=== PATIENT | female | born 1945 | race Caucasian/White ===

== ENCOUNTER 2016-11-14 13:02 | Emergency (ER) | payer MEDICARE, MEDICAID ==
[2014-06-09 06:54] VITALS: BMI 26.6
[~2016-11-14 13:02] MED LIST: MULTIPLE VITAMI1 TA1 PO
== END 2016-11-14 13:50 | disposition home or self-care (01) ==
LOC: D.ER 13:02
DX: B02.9 Zoster without complications (principal)

== ENCOUNTER → 2017-06-12 19:02 | Outpatient (CLI) | payer MEDICARE, MEDICAID ==
[2014-06-09 06:54] VITALS: BMI 26.6
== END | disposition home or self-care (01) ==
LOC: D.LABREF 19:02
DX: N39.0 Urinary tract infection, site not specified (principal)

== ENCOUNTER → 2017-06-26 17:46 | Outpatient (CLI) | payer MEDICARE, MEDICAID ==
[2014-06-09 06:54] VITALS: BMI 26.6
== END | disposition home or self-care (01) ==
LOC: D.LABREF 17:46
DX: N39.0 Urinary tract infection, site not specified (principal)

== ENCOUNTER → 2017-08-07 19:07 | Outpatient (CLI) | payer MEDICARE, MEDICAID ==
[2014-06-09 06:54] VITALS: BMI 26.6
== END | disposition home or self-care (01) ==
LOC: D.LABREF 19:07
DX: N39.0 Urinary tract infection, site not specified (principal)

== ENCOUNTER → 2017-08-21 16:33 | Outpatient (CLI) | payer MEDICARE, MEDICAID ==
[2014-06-09 06:54] VITALS: BMI 26.6
== END ==
LOC: D.LABREF 16:33
DX: N39.0 Urinary tract infection, site not specified (principal)

== ENCOUNTER 2018-08-06 08:47 | Emergency (ER) | payer OTHER, MEDICAID ==
[~2018-08-06] VITALS: Ht 152.4 cm; Wt 63.6 kg
[2018-08-06 08:49] VITALS: Ht 152.4 cm; Wt 63.6 kg
[2018-08-06 10:13] VITALS: BP 124/69
== END 2018-08-06 10:14 | disposition home or self-care (01) ==
LOC: D.ER 08:47
DX: S20.211A Contusion of right front wall of thorax, initial encounter (principal); W18.30XA Fall on same level, unspecified, initial encounter; Y93.89 Activity, other specified; Y92.89 Other specified places as the place of occurrence of the external cause

== ENCOUNTER 2018-08-20 09:17 | Emergency (ER) | payer OTHER, MEDICAID ==
[~2018-08-20] VITALS: Ht 152.4 cm; Wt 62.7 kg
[2018-08-20 09:30] VITALS: Ht 152.4 cm; Wt 62.7 kg
[2018-08-20 11:30] VITALS: BP 123/80
== END 2018-08-20 11:30 | disposition home or self-care (01) ==
LOC: D.ER 09:17
DX: L25.5 Unspecified contact dermatitis due to plants, except food (principal)

== ENCOUNTER 2018-09-14 19:14 | Emergency (ER) | payer OTHER, MEDICAID ==
[~2018-09-14] VITALS: Ht 152.4 cm; Wt 59.1 kg
[2018-09-14 19:27] VITALS: BP 132/75; Ht 152.4 cm; Wt 59.1 kg
[2018-09-14 19:57] LABS: BASOPHILS 0.5 % (0-2); EOSINOPHILS 4.2 % (0-7); HEMATOCRIT 39.9 % (36.0-48.0); HEMOGLOBIN 13.7 g/dL (12-16); IMMATURE GRANULOCYTES 0.2 % (0-5); MCH 34.3 pg (26.0-34.0); MCHC 34.3 g/dL (31.0-37.0); MCV 99.8 fL (80.0-100.0); MEAN PLATELET VOLUME 9.5 fL (7.4-10.4); MONOCYTES 8.4 % (2-11); NEUTROPHILS 50.7 % (40-80); PLATELET COUNT 180 10x3/uL (130-400); RDW 12.6 % (11.5-14.5); WBC 4.3 10x3/uL (4.8-10.8)
[2018-09-14 20:09] LABS: ANION GAP 11.5 mmol/L (8-16); BILIRUBIN - TOTAL 0.47 mg/dL (0.2-1.3); CALCIUM 9.6 mg/dL (8.5-10.1); CARBON DIOXIDE 31.4 mmol/L (21.0-32.0); CREATININE - SERUM 1.5 mg/dL (0.6-1.3); POTASSIUM - SERUM 3.9 mmol/L (3.5-5.1); PROTEIN - SERUM 8.6 g/dL (6.4-8.2)
[2018-09-14 21:16] LABS: APPEARANCE CLEAR (CLEAR); BILIRUBIN NEGATIVE (NEGATIVE); COLOR YELLOW (YELLOW); GLUCOSE NEGATIVE (NEGATIVE); KETONE NEGATIVE (NEGATIVE); NITRITE NEGATIVE (NEGATIVE); PROTEIN NEGATIVE (NEGATIVE); UROBILINOGEN NORMAL (NORMAL)
[2018-09-14 21:18] LABS: BACTERIA MODERATE /hpf (NONE SEEN); EPITHELIAL CELLS 0-5 /hpf (0-5); RED CELLS - URINE 0-5 /hpf (0-5)
[2018-09-14] MEDS ORDERED: NAPROXEN250 MG PO (22:37)
== END 2018-09-14 23:20 | disposition home or self-care (01) ==
LOC: D.ER 19:14
PROVIDERS: Family Medicine
DX: S39.012A Strain of muscle, fascia and tendon of lower back, initial encounter (principal); X58.XXXA Exposure to other specified factors, initial encounter; Y93.89 Activity, other specified; Y92.89 Other specified places as the place of occurrence of the external cause

== ENCOUNTER 2019-01-29 11:59 | Outpatient (CLI) | payer OTHER, MEDICAID ==
[2018-09-14 19:27] VITALS: BMI 25.4
[~2019-01-29 11:59] MED LIST changes: +NAPROXEN250 MG PO
== END 2019-01-29 23:59 | disposition home or self-care (01) ==
LOC: D.MAMMO 11:59
PROVIDERS: ATTEND Emergency Medicine
DX: Z12.31 Encounter for screening mammogram for malignant neoplasm of breast (principal)

== ENCOUNTER 2019-07-07 21:31 | Inpatient (IN) | payer OTHER, MEDICAID ==
[~2019-07-07] VITALS: Ht 152.4 cm; Wt 59.0 kg
--- NOTE | 2019-07-07 22:20 | NUR ---
PT UPDATED ON PLAN OF CARE. PT RESTING ON BED. PT REFUSING PAIN MEDS OR FOOD/DRINK AT THIS TIME.
[2019-07-07 22:26] LABS: BASOPHILS 0.1 % (0-2); EOSINOPHILS 0.1 % (0-7); HEMATOCRIT 40.4 % (36.0-48.0); HEMOGLOBIN 13.5 g/dL (12-16); IMMATURE GRANULOCYTES 0.1 % (0-5); MCH 34.4 pg (26.0-34.0); MCHC 33.4 g/dL (31.0-37.0); MCV 102.8 fL (80.0-100.0); MEAN PLATELET VOLUME 9.3 fL (7.4-10.4); MONOCYTES 4.9 % (2-11); NEUTROPHILS 86.8 % (40-80); PLATELET COUNT 167 10x3/uL (130-400); RBC 3.93 10x6/uL (4.00-5.40); RDW 12.6 % (11.5-14.5)
[2019-07-07 22:34] LABS: CALC OSMOLALITY 292 mosm/kg (275-300); CALCIUM 9.3 mg/dL (8.5-10.1); CARBON DIOXIDE 28.9 mmol/L (21.0-32.0); CHLORIDE - SERUM 106 mmol/L (98-107); CREATININE - SERUM 1.3 mg/dL (0.6-1.3); GLUCOSE 134 mg/dL (74-106); POTASSIUM - SERUM 3.9 mmol/L (3.5-5.1); SODIUM 143 mmol/L (136-145); UREA NITROGEN 30 mg/dL (7-18); eGFR NON AFRICAN AMERICAN 43 mL/min (90-120)
[2019-07-07 22:38] LABS: INR 1.03 (0.85-1.17); PROTIME 13.5 SECONDS (11.6-15.0)
--- NOTE | 2019-07-07 23:05 | NUR ---
REC'D PATIENT FROM ER. PATIENT STATED SHE NEEDS TO HAVE A BM. ASSISTED PATIENT ON AND OFF BEDPAN. PATIENT VOIDED, HOWEVER, DID NOT HAVE A BM. DID NOT USE URINE FOR SPECIMEN ORDERED BECAUSE IT WAS CONTAMINATED WITH BABY POWDER. PATIENT DENIES OTHER NEEDS AT THIS TIME. BED IN LOWEST POSITION AND CALL LIGHT WITHIN REACH. ENCOURAGED THE PATIENT TO CALL IF SHE HAS NEEDS. WILL CONTINUE TO MONITOR.
[2019-07-07 23:22] LABS: ALBUMIN 3.5 g/dL (3.4-5.0); ALKALINE PHOSPHATASE 88 U/L (30-120); ALT (SGPT) 37 U/L (10-68); BILIRUBIN - TOTAL 0.83 mg/dL (0.2-1.3); CKMB 53.1 U/L (0.0-3.6); PROTEIN - SERUM 8.1 g/dL (6.4-8.2)
[2019-07-07 23:24] VITALS: BP 155/88; BMI 25.4
[2019-07-07 23:24] LABS: CREATINE KINASE 3098 UL (21-215)
[2019-07-08] VITALS (10 sets, daily range): BP systolic 97–140; BP diastolic 58–79; Ht 152.4 cm; Wt 59.0 kg
--- NOTE | 2019-07-08 00:22 | NUR ---
PATIENT RESTING IN BED WITH EYES CLOSED AND NO S/S OF DISTRESS. WILL CONTINUE TO MONTIOR.
--- NOTE | 2019-07-08 03:53 | NUR ---
PATIENT RESTING IN BED WITH NO S/S OF DISTRESS AND EYES CLOSED. WILL CONTINUE TO MONITOR.
--- NOTE | 2019-07-08 04:22 | NUR ---
CHG BATH COMPLETED AND ALL LINENS CHANGED
[2019-07-08 06:34] LABS: BILIRUBIN NEGATIVE (NEGATIVE); GLUCOSE NEGATIVE (NEGATIVE); KETONE NEGATIVE (NEGATIVE); NITRITE POSITIVE (NEGATIVE); SPECIFIC GRAVITY 1.025 (1.005-1.020); UROBILINOGEN NORMAL (NORMAL)
[2019-07-08 06:35] LABS: BACTERIA MANY /hpf (NEGATIVE); EPITHELIAL CELLS 0-5 /hpf (0-5); RED CELLS - URINE 0-5 /hpf (0-5)
[2019-07-08 09:34] LABS: BASOPHILS 0.2 % (0-2); EOSINOPHILS 0 % (0-7); HEMATOCRIT 37.1 % (36.0-48.0); HEMOGLOBIN 12.4 g/dL (12-16); IMMATURE GRANULOCYTES 0.3 % (0-5); LYMPHOCYTES 11.5 % (15-50); MCH 34.1 pg (26.0-34.0); MCHC 33.4 g/dL (31.0-37.0); MCV 101.9 fL (80.0-100.0); MEAN PLATELET VOLUME 9.4 fL (7.4-10.4); MONOCYTES 7.6 % (2-11); NEUTROPHILS 80.4 % (40-80); PLATELET COUNT 155 10x3/uL (130-400); RBC 3.64 10x6/uL (4.00-5.40); RDW 12.7 % (11.5-14.5); WBC 6.3 10x3/uL (4.8-10.8)
[2019-07-08 09:52] LABS: ANION GAP 9.9 mmol/L (8-16); CALCIUM 8.9 mg/dL (8.5-10.1); CARBON DIOXIDE 28.9 mmol/L (21.0-32.0); CREATININE - SERUM 1.1 mg/dL (0.6-1.3); POTASSIUM - SERUM 3.8 mmol/L (3.5-5.1)
--- NOTE | 2019-07-08 11:12 | NUR ---
PT C/O PAIN IN LEFT HIP, ADMINISTERED PRN PAIN MEDICATION. PT HAS FREQUESNT URINATION DUT TO UTI, WILL CONTINUE WITH PLAN OF CARE
[2019-07-08 11:18] LABS: CKMB 26.9 U/L (0.0-3.6); CREATINE KINASE 3315 UL (21-215); TROPONIN-I 1.309 ng/mL (0.000-0.060)
--- NOTE | 2019-07-08 11:27 | NUR ---
PT IS WITHOUT DISTRESS.NPO FOR PROCEDURE TODAY.CALL LIGHT IN REACH
--- NOTE | 2019-07-08 16:50 | NUR ---
TRIED TO GET AHOLD OF PT AT THIS TIME TO GET CPM FOR PATIENT. UNSURE IF PATIENT NEEDS ONE AT THIS TIME BECAUSE HAD KNEE REVISION. SPOKE WITH DELFIN SARKAR. STATED TO CALL ELZA HERNANDEZ.
--- NOTE | 2019-07-08 17:15 | NUR ---
CALLED ELZA AND SHE STATED SHE WOULD CALL ME BACK ABOUT THE CPM. CALL LIGHT WITHIN REACH.
--- NOTE | 2019-07-08 18:00 | NUR ---
TRIED TO CALL PT AGAIN FOR SPM. NO ANSWER LEFT MESSAGE. SPOKE WITH DELFIN AGAIN. UNABLE TO OBTAIN CPM AT THIS TIME. STATED SHE WOULD SPEAK TO MANGER OF PT IN AM.
--- NOTE | 2019-07-08 18:35 | NUR ---
PATIENT IN BED WITH IV INTACT. BSCDS ON AND WORKING. VS STABLE. SLEEPY AT THIS TIME. DOES NOT WANT TO EAT OR DRINK RIGHT NOW. CELL PHONE, GLASSES AND WALLET IN ROOM BY SINK AT THIS TIME. BROUGHT DOWN FROM MED SURGE. CALL LIGHT WITHIN REACH. WILL CONTINUE TO MONITOR. PLACED O2 2L NC WHILE SLEEPING. SATS UP TO 97%
--- NOTE | 2019-07-08 19:47 | NUR ---
PATIENT RESTING IN BED WITH NO S/S OF DISTRESS. VSS. PATIENT DENIES PAIN AT THIS TIME. I OFFERED PATIENT ICE CHIPS, SOMETHING TO DRINK, AND HER DINNER TRAY. PATIENT REFUSED AT THIS TIME. BED IN LOWEST POSITION AND CALL LIGHT WITHIN REACH. ENCOURAGED THE PATIENT TO CALL IF SHE HAS NEEDS. WILL CONTINUE TO MONITOR.
--- NOTE | 2019-07-08 21:14 | NUR ---
ADMINISTERED MEDS PER ORDERS. ENCOURAGED THE PATIENT TO CALL IF SHE HAS NEEDS. WILL CONTINUE TO MONITOR.
--- NOTE | 2019-07-08 21:30 | NUR ---
PATIENT VOIDED 150 ML POSTOP
--- NOTE | 2019-07-08 22:04 | NUR ---
PATIENT RESTING IN BED WITH NO S/S OF DISTRESS AND EYES CLOSED. WILL CONTINUE TO MONITOR. VSS.
[2019-07-09 05:11] VITALS: BP 127/78
--- NOTE | 2019-07-09 07:16 | OP ---
PATIENT NAME: MARTINA KIM MEDICAL RECORD: [id number] :47 LOCATION:D. D.1210 ADMISSION DATE:07/07/19 SURGEON: SKY ULRICH DO DATE OF OPERATION: 07/08/2019 PREOPERATIVE DIAGNOSIS: Left femoral neck fracture, displaced and closed. POSTOPERATIVE DIAGNOSIS: Left femoral neck fracture, displaced and closed. PROCEDURE PERFORMED: Left total hip arthroscopy. INDICATIONS: Ms. Kim is a 73-year-old female who fell yesterday on her floor, sustained a femoral neck fracture. She laid on the floor for a while and did not go to the hospital until late at night. She was x-rayed and seen to have a displaced femoral neck fracture. She cannot bear weight. I informed her that she would need surgery prior to a total hip. She lives alone, is very active. She wanted to get back to that. I informed her of the risks including infection, bleeding, damage to nerves and vessels, need for further surgery, damage to nerves including the lateral cutaneous nerve of the thigh, bleeding, need for blood clots, and even . She is aware there was risks including further fracture and need for further surgery, and signed the consent. SURGEON: Sky Ulrich DO DESCRIPTION OF PROCEDURE: The patient was taken to the operative suite, laid in the supine position, given general anesthetic and intubated. She was given a gram of Ancef preoperatively and placed on the [place] table and positioned. The left hip was prepped and draped in sterile fashion. Timeout was performed, everyone was in agreement with correct side, site, patient and procedure. Assisted by Erickson Raines, certified surgical insurance account assistant. He assisted with retraction and closing, the incision was then made over tensor fasciae latae muscle and a total dissection made down to that. The fascia was taken anterior to the muscle belly posteriorly and open the rectus interval. This was then opened. The rectus was taken medially, the tensor fascia liliya laterally. I then opened the fascia there and coagulated the ascending branch of lateral femoral circumflex artery and tied off as well and coagulated again with the Aquamantys. I then opened the capsule and cut the neck. This is basically a subcapital femoral neck fracture cuts more the neck and then removed the head, then removed the labrum and the pulvinar and reamed the acetabulum under fluoroscopy up to 48 and impacted to 48 cup fit well and was checked and seemed to fit very well and impacted well and was solid. We then put the liner in and impacted that in place and this fit very as well. We then exposed the femur with use of canal finder and cookie cutter and then broached from a 4-11 and trialed the -6 neck. It was a little short decided with -3 then removed the stem and the stem was a little loose. It was broached to a 12, used a 12 stem after irrigating with the 12 stem in with a -3 neck and arm, I then reduced the hip and removed some soft tissue out of the way and had a dislocated and removed the soft tissue and then reduced the hip again, this fit very well. X-rays were taken. No fracture was seen in the femur at equal leg lengths on x-ray and AP pelvis. I then irrigated, put the 10% povidone iodine solution and the wound with 500 mL normal saline, let sit for 3 minutes and irrigated out with over a liter of normal saline and closed the tensor fascia liliya fascia with #1 Vicryl, first with [id number] and then with a running locking stitch. The skin was closed with 2-0 Vicryl interrupted fashion, 4-0 Monocryl on the skin and Prineo OPERATIVE REPORT [id number] MARTINA KIM glue placed on the skin. She was awakened and taken to recovery in stable condition. Blood loss approximately 250 mL. COMPLICATIONS: None. TRANSINT:[id number] Voice Confirmation ID: [id number] DOCUMENT ID: [id number] SKY ULRICH DO at 0716 CC: [id number] DICTATION DATE: 07/08/19 1658 BEDSPREAD FOLDER: 07/09/19 0536 [facility] IN [facility] [address] [place] [address]
[2019-07-09 07:28] VITALS: BP 121/68
--- NOTE | 2019-07-09 07:40 | NUR ---
PATIENT IN BED WITH IV INTACT. NO COMPLAINTS OR SIGNS OF DISTRESS. CALL LIGHT WITHIN REACH. SCDS ON.
[2019-07-09 07:51] LABS: BASOPHILS 0 % (0-2); EOSINOPHILS 0 % (0-7); HEMATOCRIT 35.5 % (36.0-48.0); HEMOGLOBIN 11.7 g/dL (12-16); IMMATURE GRANULOCYTES 0.1 % (0-5); LYMPHOCYTES 6.4 % (15-50); MCH 33.9 pg (26.0-34.0); MCV 102.9 fL (80.0-100.0); MEAN PLATELET VOLUME 9.8 fL (7.4-10.4); MONOCYTES 5.8 % (2-11); NEUTROPHILS 87.7 % (40-80); PLATELET COUNT 154 10x3/uL (130-400); RBC 3.45 10x6/uL (4.00-5.40); RDW 12.7 % (11.5-14.5)
[2019-07-09 07:56] LABS: ANION GAP 9.9 mmol/L (8-16); CALCIUM 8.7 mg/dL (8.5-10.1); CARBON DIOXIDE 27.3 mmol/L (21.0-32.0); CREATININE - SERUM 1.2 mg/dL (0.6-1.3); POTASSIUM - SERUM 4.2 mmol/L (3.5-5.1)
[2019-07-09 08:03] LABS: WBC 9.1 10x3/uL (4.8-10.8)
--- NOTE | 2019-07-09 11:00 | NUR ---
PATIENT SITTING UP IN CHAIR WITH NO COMPLAINTS. IV INTACT. CALL LIGHT WITHIN REACH. CHAIR ALARM ON.
--- NOTE | 2019-07-09 11:52 | NUR ---
Rehab Note- Acute Inpatient Rehab prescreen order received. The patient has [employer] insurance and will require a PreAuth- has a pending PT & OT Evals that will be needed for PReAuth process. Have spoken with WENDIE Salcedo. Will begin PreAuth process. Thank you for this referral! Jessie Morin RN Clinical Liaison, [facility] Rehab
--- NOTE | 2019-07-09 12:01 | MORECARE ---
CASE MANAGEMENT DISCHARGE SUMMARY PATIENT: MARTINA LEAL UNIT: [id number] ADM DATE: 07/07/19 AGE: 73 : 46 SEX: F ROOM/BED: D.1210 AUTHOR: JODY,DOC PHYSICIAN: REFERRING PHYSICIAN: CHRISTOPHER ZUNIGA MD DATE OF SERVICE: 07/09/19 Discharge Plan Patient Name: MARTINA LEAL Facility: [facility]:[place] : 1945 Planned Disposition: Inpatient Rehab Anticipated Discharge Date: 07/10/19 Discharge Date: Expected LOS: 3 Initial Reviewer: [email or web address] Initial Review Date: 07/07/2019 Generated: 07/09/19 1:01 pm Comments DCP- Discharge Planning Updated by [email or web address]: Denisse Poon on 07/09/19 10:[address] DC PLAN: Referral made to BUFFING AND POLISHING WHEEL REPAIRER in rehab. ANTICIPATED DC NEEDS: Rehab. CM met with patient to complete initial dc planning assessment. CM educated patient on the CM role and verbal consent given by patient to complete assessment. CM verified patient's address, phone number, and emergency contact phone numbers. 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 At discharge patient plans to go to rehab feels this is a safe discharge. CM discussed availability of home health, rehab services, and medical equipment. JACQUELINE presented, explained, and signed for 1. [facility] POLISH[facility] WHEEL REPAIRER IN Rehab, 2. [facility] Rehab. Singed form placed on chart and signed form left with patient. CM to await admission determination from Rehab. Patient is private insurance and will require prior auth. CM will continue to follow and will assist as needed with dc plans/needs. Denisse Poon RN, [facility] DCPIA - Discharge Planning Initial Assessment Updated by [email or web address]: Denisse Poon on 07/09/19 11:55 am * Is the patient Alert and Oriented? Yes * How many steps to enter\exit or inside your home? * PCP Dr. Dumont * [facility] * Preadmission Environment Home Alone * ADLs Independent * Equipment Cane * List name and contact numbers for known caregivers / representatives who currently or will assist patient after discharge: Jose E Ritter - boy friend - [phone] * Community resources currently utilized None * Additional services required to return to the preadmission environment? Yes * Can the patient safely return to the preadmission environment? No * Has this patient been hospitalized within the prior 30 days at any hospital? No Patient Name: MARTINA LEAL Page [phone] at 1201 All edits/amendments must be made on the electronic document DICTATION DATE: 07/09/191200 PRECISION LENS GRINDER: FAISAL 07/09/19 1201 RPT#: [id number] DC DATE: STATUS: ADM IN [facility] [address] [place] [address] END OF REPORT
--- NOTE | 2019-07-09 14:00 | NUR ---
PATIENT IN BED RESTING QUIETLY WITH NO COMPLAINTS OR SIGNS OF DISTRESS. IV INTACT. BED ALARM ON, CALL LIGHT WITHIN REACH.
--- NOTE | 2019-07-09 15:17 | NUR ---
Rehab Note- Have initiated PreAuth with Augustine/moira Kumar faxed in at this time for review. Will continue to await for determination at this time. Thank you for this referral! Jessie Morin RN Clinical Liaison, [facility] Rehab
--- NOTE | 2019-07-09 16:57 | MORECARE ---
CASE MANAGEMENT DISCHARGE SUMMARY PATIENT: MARTINA LEAL UNIT: [id number] ADM DATE: 07/07/19 AGE: 73 : 46 SEX: F ROOM/BED: D.1210 AUTHOR: JODY,DOC PHYSICIAN: REFERRING PHYSICIAN: CHRISTOPHER ZUNIGA MD DATE OF SERVICE: 07/09/19 Discharge Plan Patient Name: MARTINA LEAL Facility: [facility]:[place] : 1945 Planned Disposition: Inpatient Rehab Anticipated Discharge Date: 07/10/19 Discharge Date: Expected LOS: 3 Initial Reviewer: [email or web address] Initial Review Date: 07/07/2019 Generated: 07/09/19 5:57 pm DCP- Discharge Planning Updated by [email or web address]: Denisse Poon on 07/09/19 10:[address] DC PLAN: Referral made to CO TEACHER in rehab. ANTICIPATED DC NEEDS: Rehab. CM met with patient to complete initial dc planning assessment. CM educated patient on the CM role and verbal consent given by patient to complete assessment. CM verified patient's address, phone number, and emergency contact phone numbers. 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 At discharge patient plans to go to rehab feels this is a safe discharge. CM discussed availability of home health, rehab services, and medical equipment. JACQUELINE presented, explained, and signed for 1. CO TEACHER IN Rehab, 2. [facility] Rehab. Singed form placed on chart and signed form left with patient. CM to await admission determination from Rehab. Patient is private insurance and will require prior auth. CM will continue to follow and will assist as needed with dc plans/needs. Denisse Poon RN, [facility] DCPIA - Discharge Planning Initial Assessment Updated by [email or web address]: Denisse Poon on 07/09/19 11:55 am * Is the patient Alert and Oriented? Yes * How many steps to enter\exit or inside your home? * PCP Dr. Dumont * [facility] * Preadmission Environment Home Alone * ADLs Independent * Equipment Cane * List name and contact numbers for known caregivers / representatives who currently or will assist patient after discharge: Jose E Ritter - boy friend - [phone] * Community resources currently utilized None * Additional services required to return to the preadmission environment? Yes * Can the patient safely return to the preadmission environment? No * Has this patient been hospitalized within the prior 30 days at any hospital? No Coverage Notice Reviewer: [email or web address] Mario Poon Notice Issued Date-Time: 07/09/2019 13:14 Notice Type: Patient Choice Letter Notice Delivered To: Patient Relationship to Patient: Police Communications Operator Name: Delivery Method: - Mariella Days: Prior Verbal Notification: Recipient Understood Notice: Yes Recipient Signature: Yes Med Rec Note Co-signed by Attending: Coverage Notice Comment: 1. [facility] IN Rehab 2. [facility] IN Rehab Last DP export: 07/09/19 11:01 a Patient Name: MARTINA LEAL Page [phone] at 1657 All edits/amendments must be made on the electronic document DICTATION DATE: 07/09/191656 FARM TRUCK DRIVER: FAISAL 07/09/191656 RPT#: [id number] DC DATE: STATUS: ADM IN [facility] [address] [place] [address] END OF REPORT
[2019-07-09 17:21] VITALS: BP 105/59
--- NOTE | 2019-07-09 17:25 | NUR ---
PATIENT SITTING UP IN BED EATING DINNER. STATED SHE IS WAITING ON HER BOYFRIEND TO COME SEE HER. IV INTACT. NO COMPLAINTS. BSCDS ON AND WORKING. CALL LIGHT WITHIN REACH.
--- NOTE | 2019-07-09 19:35 | NUR ---
[facility]SI[facility] PATIENT [facility]. PATIENT VOIDED. ASSISTED PATIENT REPOSITIONING IN BED. PATIENT DENIES OTHER NEEDS AT THIS TIME. PATIENT DENIES PAIN. BED IN LOWEST POSITION, CALL LIGHT WITHIN REACH, AND BED ALARM ON. ENCOURAGED THE PATIENT TO CALL IF SHE HAS NEEDS. WILL CONTINUE TO MONITOR.
[2019-07-09 20:15] VITALS: BP 109/64; BP 99/63
--- NOTE | 2019-07-09 21:18 | NUR ---
ADMINISTERED MEDS PER ORDERS. PATIENT DENIES OTHER NEEDS AT THIS TIME. BED IN LOWEST POSITION AND CALL LIGHT WITHIN REACH. ENCOURAGED THE PATIENT TO CALL IF SHE HAS NEEDS. WILL CONTINUE TO MONITOR.
[2019-07-10] VITALS: BP 101/60
[2019-07-10 03:00] VITALS: BP 106/60
[2019-07-10 07:19] LABS: BASOPHILS 0.1 % (0-2); EOSINOPHILS 0.5 % (0-7); HEMATOCRIT 31.3 % (36.0-48.0); HEMOGLOBIN 10.1 g/dL (12-16); IMMATURE GRANULOCYTES 0.3 % (0-5); LYMPHOCYTES 19.6 % (15-50); MCH 33.6 pg (26.0-34.0); MCHC 32.3 g/dL (31.0-37.0); MEAN PLATELET VOLUME 9.6 fL (7.4-10.4); MONOCYTES 6.3 % (2-11); NEUTROPHILS 73.2 % (40-80); PLATELET COUNT 145 10x3/uL (130-400); RBC 3.01 10x6/uL (4.00-5.40); RDW 12.9 % (11.5-14.5); WBC 7.4 10x3/uL (4.8-10.8)
--- NOTE | 2019-07-10 07:25 | NUR ---
REC'D PT SITTING AT THE BEDSIDE WITH TABLE IN FRONT OF HER. PT IS PLESANT. DOES NOT C/O OF PAIN. PT CONT ON ROCEPHIN 1 GRAM IVPB FOR UTI. WILL MONITOR FOR S/SX OF REACTION. PT CALL ALARM IS IN REACH. PT IV DRY AND INTACT N/S @ 75 ML/HR. WILL CONT PLAN OF CARE.
[2019-07-10 07:38] LABS: CALCIUM 8.1 mg/dL (8.5-10.1); CREATININE - SERUM 1.2 mg/dL (0.6-1.3)
--- NOTE | 2019-07-10 08:40 | NUR ---
ASSISTED PT FROM RECLINER TO BEDSIDE COMMODE. PT TOLERATED VERY WELL. SLOW WITH AMBULATION AND REPOSITION. PT C/O OF PAIN WHEN SHE MOVES. WILL PROVIDE PAIN MEDICATION IF WITHIN TIME.
--- NOTE | 2019-07-10 09:05 | NUR ---
NURSE ADMINISTERED HYDROCODONE 10/325 MG FOR PAIN AT 8 ON A SCALE OF ONE TO TEN. WILL REASSESS PAIN FOR EFFECTIVENESS.
[2019-07-10 09:24] VITALS: BP 99/59
--- NOTE | 2019-07-10 09:56 | NUR ---
PT UP WORKING WITH PHYSICAL THERAPY.
--- NOTE | 2019-07-10 09:56 | NUR ---
NURSE ASSISTED UP TO BEDSIDE COMMODE. TOLERATED WELL. ASSISTED PT WITH TOOTHBRUSHING AND HAIR ADLS. PT VOIDED.
--- NOTE | 2019-07-10 13:31 | NUR ---
REMOVED PT IV FROM RIGHT FOREARM DUE TO INFILTRATION. IV CATHETER TIP INTACT UPON REMOVAL. PT DENIES ANY PAIN.
--- NOTE | 2019-07-10 15:19 | NUR ---
SPOKE WITH DR. ULRICH ABOUT PATIENTS IV. NEW ORDERS: D/C IV, D/C ROCEPHIN IV AND OBTAIN A NEW U/A. WILL FOLLOW ORDERS.
--- NOTE | 2019-07-10 18:59 | NUR ---
THIS NURSE OFFERED PATIENT A SHOWER THIS SHIFT. PT STATED SHE WANTED TO TAKE ONE IN THE MORNING RIGHT AFTER BREAKFAST BECAUSE SHE WANTED TO BE FRESH FOR HER FAMILY. NURSE VERBALIZED UNDERSTANDING. WILL REPORT TO NEXT SHIFT.
--- NOTE | 2019-07-10 19:20 | NUR ---
ASSISTED PATIENT FROM BSC TO BED WITH HERB LYNCH. PATIENT DENIES OTHER NEEDS AT THIS TIME. BED IN LOWEST POSITION AND CALL LIGHT WITHIN REACH. ENCOURAGED THE PATIENT TO CALL IF SHE HAS NEEDS. WILL CONTINUE TO MONITOR.
[2019-07-10 19:32] VITALS: BP 98/54
--- NOTE | 2019-07-10 21:55 | NUR ---
COMPLETED CHG BATH
--- NOTE | 2019-07-10 23:45 | NUR ---
PATIENT RESTING IN BED WITH EYES CLOSED AND NO S/S OF DISTRESS. BED IN LOWEST POSITION, CALL LIGHT WITHIN REACH, AND BED ALARM ON. WILL CONTINUE TO MONITOR.
[2019-07-11] VITALS: BP 131/70
--- NOTE | 2019-07-11 02:07 | NUR ---
PATIENT RESTING IN BED WITH EYES CLOSED AND NO S/S OF DISTRESS. BED IN LOWEST POSITION AND CALL LIGHT WITHIN REACH. WILL CONTINUE TO MONITOR.
--- NOTE | 2019-07-11 03:00 | NUR ---
CHG BATH COMPLETED. LINENS CHANGED.
[2019-07-11 03:26] VITALS: BP 122/65
[2019-07-11 06:05] LABS: BASOPHILS 0.2 % (0-2); EOSINOPHILS 3.6 % (0-7); HEMATOCRIT 28.7 % (36.0-48.0); HEMOGLOBIN 9.2 g/dL (12-16); IMMATURE GRANULOCYTES 0.2 % (0-5); LYMPHOCYTES 23.7 % (15-50); MCH 33.1 pg (26.0-34.0); MCHC 32.1 g/dL (31.0-37.0); MCV 103.2 fL (80.0-100.0); MEAN PLATELET VOLUME 9.5 fL (7.4-10.4); MONOCYTES 6.8 % (2-11); NEUTROPHILS 65.5 % (40-80); PLATELET COUNT 157 10x3/uL (130-400); RBC 2.78 10x6/uL (4.00-5.40); RDW 12.6 % (11.5-14.5)
[2019-07-11 06:20] LABS: ANION GAP 10.2 mmol/L (8-16); CALCIUM 8.6 mg/dL (8.5-10.1); CARBON DIOXIDE 27.6 mmol/L (21.0-32.0); CREATININE - SERUM 0.9 mg/dL (0.6-1.3); POTASSIUM - SERUM 3.8 mmol/L (3.5-5.1)
[2019-07-11 07:16] VITALS: BP 105/61
--- NOTE | 2019-07-11 07:49 | NUR ---
AWAKE AND ALERT. ORIENTED X3. NO C/O AT THIS TIME. LUNGS ARE CLEAR BILATERALLY, NO COUGH NOTED. SKIN IS INTACT WITHOUT REDNESS EXCEPT INCISION TO LEFT HIP WHICH HAS A DRY INTACT DRESSING IN PLACE. SCD'S ON. REPOSITIONED IN BED FOR COMFORT. BREAKFAST SERVED IN ROOM.
[2019-07-11] MEDS ORDERED: HYDROCODON-ACE1 EA10 PO (08:10)
[2019-07-11] MEDS ORDERED: ELIQUIS2.5 MG PO (08:10)
--- NOTE | 2019-07-11 09:59 | NUR ---
ATE ALL OF BREAKFAST SHE WANTED. TOOK AM MEDS WITHOUT DIFFICULTY. DENIES NEEDS. FAMILY IN ROOM.
--- NOTE | 2019-07-11 11:22 | NUR ---
AMBULATED IN HALLWAY A FEW FEET WITH PT USING RW. DENIES NEEDS.
[2019-07-11 11:34] VITALS: BP 116/68
--- NOTE | 2019-07-11 13:21 | NUR ---
Nutrition Follow-up: Diet: Regular Vegan with No Sugar PO intake: 70-100% all meals; she reports a good appetite. She is please with the meals that she has been receiving from the kitchen. She request room temp beverages. Last BM: 07/09/19. WT: 130# (07/08/19) Meds noted: julio. Labs reviewed. Recommend continue current diet. Will update food preferences. RD following.
[2019-07-11 16:08] VITALS: BP 115/63
--- NOTE | 2019-07-11 16:10 | NUR ---
UP TO BS WITH ONE PERSON MIN ASSIST. VOIDED CLEAR YELLOW URINE WITHOUT DIFFICULTY. REPOSITIONED IN BED FOR COMFORT.
--- NOTE | 2019-07-11 16:48 | EC ---
PATIENT:MARTINA LEAL DATE OF SERVICE: 07/07/19 SEX: F MEDICAL RECORD: [id number] DATE OF : [birth year] LOCATION:D. D.121 AGE OF PATIENT: 73 ADMISSION DATE: 07/07/19 REFERRING PHYSICIAN: INTERPRETING PHYSICIAN: LAURA SAUCEDO MD ECHOCARDIOGRAM REPORT ECHO CHARGES 4 ECHO COMPLETE Date: 07/08/19 CLINICAL DIAGNOSIS: ELEVATED TROPONIN ECHOCARDIOGRAPHIC MEASUREMENTS (adult normal given) AC root (d.<3.7cm) 2.4 cm LV Septum d (<1.2 cm> 0.8 cm Valve Excursion 1.2 cm LV Septum (systole) 1.1 cm Left Atria (s.<4.0cm> 2.4 cm LVPW d(<1.2cm) 0.6 cm RV (d.<2.3cm) 1.5 cm LVPW (sytole) 0.8 cm LV diastole(<5.6CM) 4.4 cm MV E-F(>70mm/sec) cm LV systole 3.3 cm LVOT Diameter 1.4 cm MV exc.(>10mm) cm Est.ejection fraction (50-75%) % DOPPLER: LVIT cm/sec A 111 cm/sec E 86 cm/sec LA cm/sec RVSP 18.2 mmHg LVOT 115 cm/sec AOP1/2T m/s Asc. Ao 150 cm/sec RVOT 71 cm/sec RA cm/sec PA 78 cm/sec AV Gradient Peak 9.0 mmHg AV Mean 5.6 mmHg AV Area 1.1 cm MV Gradient Peak 5.5 mmHg MV Mean 3.1 mmHg MV Area cm COMMENTS: Chemical Operations Specialist: Olivia [facility] Food Service Attendant: 1 Dr. Saucedo TAPE# PACS Pericardial Effusion N DATE OF SERVICE: ECHOCARDIOGRAM FINDINGS: 1. Left ventricular chamber size is within normal limits. Left ventricular systolic function is normal at 55% to 60%. 2. Left atrium, right atrium, and right ventricle chamber sizes are within normal limits. 3. Valvular structures have normal structure and motion. ECHOCARDIOGRAM REPORT [id number] MARTINA LEAL 4. Doppler interrogation reveals mild mitral regurgitation, no other valvular insufficiency or stenosis. Pulmonary systolic pressure estimated at 18 mmHg. 5. No evidence of pericardial effusion or left ventricular thrombus. TRANSINT:[id number] Voice Confirmation ID: [id number] DOCUMENT ID: [id number] LAURA SAUCEDO MD at 1648 CC: [id number] DICTATION DATE: 07/08/19 1625 TOPOLOGY TEACHER: 07/08/19 1713 ADM IN [place] [id number] [place] [id number]
--- NOTE | 2019-07-11 17:55 | NUR ---
ATE ABOUT 75% OF MEAL. BRUSHED TEETH AT BEDSIDE. UP TO BSC. VOIDED ONLY 100 CC CLEAR YELLOW URINE. REPOSITIONED IN CHAIR AT BEDSIDE FOR COMFORT.
--- NOTE | 2019-07-11 19:15 | NUR ---
PT LYING IN BED RESTING WITHOUT DISTRESS, AOX4. PT STATES SHE IS NOT HAVING MUCH PAIN AT THIS TIME. PT NEEDED TO VOID BUT DID NOT WANT TO GET UP AT THIS TIME. PLACED PT ON AND OFF BEDPAN. PROVIDED MARCIE CARE. DRESSING TO LEFT GROIN CDI. DENIES FURHTER NEEDS. CL IN REACH, WILL CTM
--- NOTE | 2019-07-11 20:00 | NUR ---
PLACED PT ON AND OFF BEDPAN TO VOID. MARCIE CARE PROVIDED. DENIES OTHER NEEDS. CL IN REACH, WILL CTM
[2019-07-11 20:31] VITALS: BP 113/69
--- NOTE | 2019-07-11 20:55 | NUR ---
BED CHANGE PROVIDED. PATIENT TOLERATED WELL. SCD'S ON BILATERALLY. PATIENT DENIES PAIN AT THIS TIME. CALL LIGHT IN REACH. CPOC.
--- NOTE | 2019-07-11 23:00 | NUR ---
PT PLACED ON AND OFF BEDPAN. SMALL SKIN TEAR ON PT RIGHT BUTTOCK. PT STATES IT IS SORE TO LAY ON THAT SIDE. SMALL MEPILEX PLACED ON PT, PT TURNED TO LEFT SIDE WITH PILLOW UNDER RIGHT HIP. PT STATES IT FEELS MUCH BETTER. DENIES OTHER NEEDS. WILL CTM
[2019-07-12] VITALS: BP 131/62
--- NOTE | 2019-07-12 00:21 | NUR ---
ASSISTED PATIENT WITH BED FELDMAN. REFUSES BED SIDE COMMODE AT THIS TIME. REFUSED ICE PACKS AT THIS TIME. CALL LIGHT IN REACH. BED ALARM ON. CPOC.
--- NOTE | 2019-07-12 02:40 | NUR ---
PT ASSISTED ON AND OFF BEDPAN. VOIDED, MARCIE CARE PROVIDED. BED ALARM ON. CL IN REACH, WILL CTM
--- NOTE | 2019-07-12 02:43 | NUR ---
PATIENT USING INCENTIVE SPIROMETER AT THIS TIME.
[2019-07-12 04:00] VITALS: BP 148/79
--- NOTE | 2019-07-12 04:33 | NUR ---
ANSWERED PATIENT CALL LIGHT. REQUESTING REPOSITIONING. C/O BACK AND HIP PAIN 11/21. TOLD PATIENT OPTIONS OF NORCO 5 AND TYLENOL 650. PATIENT REQUESTED TYLENOL 650 MG FOR PAIN CONTROL. ADMINISTERED PER ORDER. PATIENT TOLERATED WELL. REPOSITIONED PATIENT. HOB ELEVATED AT 35 DEGREE ANGLE WHEN EXITING THE ROOM. CALL LIGHT IN REACH. BILATERAL SCD'S REMAIN ON. BED ALARM ON AND WORKING PROPERLY. INSTRUCTED PATIENT THAT THIS NURSE WILL BRING FRESH ICE PACKS AND ENCOURAGED PATIENT TO CONTINUE TO USE ICE FOR PAIN ALLEVIATION. PATIENT VERBALIZES UNDERSTANDING. CPOC.
--- NOTE | 2019-07-12 05:15 | NUR ---
PROVIDED PATIENT WITH HIBBA CLEANSE BED BATH.
--- NOTE | 2019-07-12 05:43 | NUR ---
PATIENT HAD LARGE BM. AMBULATED TO BATHROOM WITH WALKER AND ASSISTANCE. UP IN CHAIR WITH FADI ALARM ON AND FUNCTIONING PROPERLY
[2019-07-12 06:42] LABS: BASOPHILS 0.5 % (0-2); EOSINOPHILS 3.7 % (0-7); HEMATOCRIT 30.2 % (36.0-48.0); HEMOGLOBIN 9.8 g/dL (12-16); IMMATURE GRANULOCYTES 0.5 % (0-5); LYMPHOCYTES 27.1 % (15-50); MCH 33.4 pg (26.0-34.0); MCHC 32.5 g/dL (31.0-37.0); MCV 103.1 fL (80.0-100.0); MEAN PLATELET VOLUME 9.5 fL (7.4-10.4); MONOCYTES 7.3 % (2-11); NEUTROPHILS 60.9 % (40-80); RBC 2.93 10x6/uL (4.00-5.40); RDW 12.7 % (11.5-14.5); WBC 4.4 10x3/uL (4.8-10.8)
[2019-07-12 06:47] LABS: PLATELET COUNT 198 10x3/uL (130-400)
[2019-07-12 06:57] LABS: ANION GAP 12.6 mmol/L (8-16); CARBON DIOXIDE 27.2 mmol/L (21.0-32.0); CREATININE - SERUM 1.2 mg/dL (0.6-1.3); POTASSIUM - SERUM 3.8 mmol/L (3.5-5.1)
[2019-07-12 08:01] VITALS: BP 123/69
--- NOTE | 2019-07-12 08:09 | NUR ---
AWAKE AND ALERT. SITTING UP IN CHAIR AT BEDSIDE EATING BREAKFAST. LUNGS ARE CLEAR BILATERALLY, NO COUGH NOTED. SKIN IS INTACT WITHOUT REDNESS EXCEPT SMALL SCRAPE TO RIGHT BUTTOCK AND INCISION TO LEFT HIP WHICH HAS A DRY INTACT DRESSING IN PLACE. NO IV ACCESS AT THIS TIME SCD'S IN PLACE. DENIES NEEDS.
--- NOTE | 2019-07-12 09:00 | NUR ---
ATE MOST OF BREAKFAST. TOOK AM MEDS WITHOUT DIFFICULTY. UP TO BR WITH MIN ASSIST OF ONE. HAD LARGE FORMED BROWN STOOL. SKIN CARE PER SELF.
[2019-07-12 11:26] VITALS: BP 116/74
--- NOTE | 2019-07-12 11:42 | NUR ---
UP TO BR WITH RW ONE PERSON MIN ASSIST. VOIDED WITHOUT DIFFICULTY.
--- NOTE | 2019-07-12 12:47 | NUR ---
Rehab Note- Spoke with Augustine/José this AM and stated that the PreAuth for acute inpatient rehab that was initiated on 07/09 is still pending and will put an urgent email in to their supervisor felting d/t still pending. SPoke with Haja Salcedo to inform her also. THank you for this referral! Jessie Morin RN Clinical Liaison, [facility] Rehab
[2019-07-12] MEDS ORDERED: Levaquin PO (13:39)
--- NOTE | 2019-07-12 14:17 | NUR ---
Rehab Note- Received call from Tiffanie with José had some questions that were clarified, received Authorization for inpatient acute rehab stay. Auth #[id number] with clinical review needed Monday07/19/2019. Spoke with WENDIE Salcedo to inform of Auth & can take the patient today. THank you for this referral! Jessie Morin RN Clinical Liaison, [facility] Rehab
--- NOTE | 2019-07-12 15:30 | NUR ---
REPORT CALLED TO BHARATHI ESTEVEZ ON REHAB. ALL QUESTIONS ANSWERED. WAITING ON ROOM TO BE CLEANED TO D/C.
--- NOTE | 2019-07-12 15:33 | NUR ---
REPORT CALLED TO BHARATHI ESTEVEZ IN REHAB. ALL QUESTIONS ANSWERED.
[2019-07-12 15:52] VITALS: BP 139/88
--- NOTE | 2019-07-12 16:20 | NUR ---
DISCHARGED TO REHAB ROOM 1119A VIA WC. VISITOR WITH PATIENT. DISCHARGE INSTRUCTIONS GIVEN BOTH VERBALLY AND WRITTEN. ALL QUESTIONS ANSWERED. PATIENT VERBALIZED UNDERSTANDING OF SAME. NEEDED PRESCRIPTIONS SENT WITH PATIENT. ALL BELONGINGS WITH PATIENT.
--- NOTE | 2019-07-12 17:25 | MORECARE ---
CASE MANAGEMENT DISCHARGE SUMMARY PATIENT: MARTINA LEAL UNIT: [id number] ADM DATE: 07/07/19 AGE: 73 : 46 SEX: F ROOM/BED: D.1210 AUTHOR: JODY,DOC PHYSICIAN: REFERRING PHYSICIAN: CHRISTOPHER ZUNIGA MD DATE OF SERVICE: 07/12/19 Discharge Plan Patient Name: MARTINA LAEL Facility: [facility]:[place] : 1945 Planned Disposition: Inpatient Rehab Anticipated Discharge Date: 07/10/19 Discharge Date: 07/12/2019 Expected LOS: 3 Initial Reviewer: WILLIAM Initial Review Date: 07/07/2019 Generated: 07/12/19 6:24 pm Comments DCP- Discharge Planning Updated by [id number]: Denisse Poon on 07/12/19 4:[address] Patient discharged to Inpatient Rehab at [facility]CREEN MAKING SUPERVIS[facility]. Denisse Poon RN, CCM DCP- Discharge Planning Updated by [id number]: Denisse Poon on 07/09/19 10:[address] DC PLAN: Referral made to [facility] MA[facility] SUPER[facility] in rehab. ANTICIPATED DC NEEDS: Rehab. CM met with patient to complete initial dc planning assessment. CM educated patient on the CM role and verbal consent given by patient to complete assessment. CM verified patient's address, phone number, and emergency contact phone numbers. 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 At discharge patient plans to go to rehab feels this is a safe discharge. CM discussed availability of home health, rehab services, and medical equipment. JACQUELINE presented, explained, and signed for 1. [facility]PER[facility] IN Rehab, 2. [facility] IN Rehab. Singed form placed on chart and signed form left with patient. CM to await admission determination from Rehab. Patient is private insurance and will require prior auth. CM will continue to follow and will assist as needed with dc plans/needs. Denisse Poon RN, CCM DCPIA - Discharge Planning Initial Assessment Updated by [email or web address]: Denisse Poon on 07/09/19 11:55 am * Is the patient Alert and Oriented? Yes * How many steps to enter\exit or inside your home? * PCP Dr. Dumont * Pharmacy [facility] * Preadmission Environment Home Alone * ADLs Independent * Equipment Cane * List name and contact numbers for known caregivers / representatives who currently or will assist patient after discharge: Jose E Ritter - champ friend - [phone] * Community resources currently utilized None * Additional services required to return to the preadmission environment? Yes * Can the patient safely return to the preadmission environment? No * Has this patient been hospitalized within the prior 30 days at any hospital? No Coverage Notice Reviewer: [id number] Mario Poon Notice Issued Date-Time: 07/09/2019 13:14 Notice Type: Patient Choice Letter Notice Delivered To: Patient Relationship to Patient: Concrete Bucket Loader Name: Delivery Method: - Mariella Days: Prior Verbal Notification: Recipient Understood Notice: Yes Recipient Signature: Yes Med Rec Note Co-signed by Attending: Coverage Notice Comment: 1. [facility] IN Rehab 2. [facility] IN Rehab Last DP export: 07/09/19 3:57 p Patient Name: MARTINA LEAL Page [phone] at 1725 All edits/amendments must be made on the electronic document DICTATION DATE: 07/12/191723 MANAGER CAFE: FAISAL 07/12/19 172 RPT#: [id number] DC DATE:07/12/19 STATUS: DIS IN [facility] [address] [place] [address] END OF REPORT
--- NOTE | 2019-07-15 09:19 | MORECARE ---
CASE MANAGEMENT DISCHARGE SUMMARY PATIENT: MARTINA LEAL UNIT: [id number] ADM DATE: 07/07/19 AGE: 73 : 46 SEX: F ROOM/BED: D.1210 AUTHOR: JODY,DOC PHYSICIAN: REFERRING PHYSICIAN: CHRISTOPHER ZUINGA MD DATE OF SERVICE: 07/15/19 Discharge Plan Patient Name: MARTINA LEAL Facility: [facility]:[place] : 1945 Planned Disposition: Inpatient Rehab Anticipated Discharge Date: 07/10/19 Discharge Date: 07/12/2019 Expected LOS: 3 Initial Reviewer: [email or web address] Initial Review Date: 07/07/2019 Generated: 07/15/19 10:19 am Comments DCP- Discharge Planning Updated by [id number]: Denisse Poon on 07/12/19 4:[address] Patient discharged to Inpatient Rehab at GOLF MANAGER. Denisse Poon RN, CCM DCP- Discharge Planning Updated by [email or web address]: Denisse Poon on 07/09/19 10:[address] DC PLAN: Referral made to GOLF MANAGER in rehab. ANTICIPATED DC NEEDS: Rehab. CM met with patient to complete initial dc planning assessment. CM educated patient on the CM role and verbal consent given by patient to complete assessment. CM verified patient's address, phone number, and emergency contact phone numbers. 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 At discharge patient plans to go to rehab feels this is a safe discharge. CM discussed availability of home health, rehab services, and medical equipment. JACQUELINE presented, explained, and signed for 1. [facility] MANAGER IN Rehab, 2. [facility] Rehab. Singed form placed on chart and signed form left with patient. CM to await admission determination from Rehab. Patient is private insurance and will require prior auth. CM will continue to follow and will assist as needed with dc plans/needs. Denisse Poon RN, CCM DCPIA - Discharge Planning Initial Assessment Updated by [email or web address]: Denisse Poon on 07/09/19 11:55 am * Is the patient Alert and Oriented? Yes * How many steps to enter\exit or inside your home? * PCP Dr. Dumont * Pharmacy [facility] * Preadmission Environment Home Alone * ADLs Independent * Equipment Cane * List name and contact numbers for known caregivers / representatives who currently or will assist patient after discharge: Jose E Ritter - champ friend - [phone] * Community resources currently utilized None * Additional services required to return to the preadmission environment? Yes * Can the patient safely return to the preadmission environment? No * Has this patient been hospitalized within the prior 30 days at any hospital? No Coverage Notice Reviewer: [id number] Mario Poon Notice Issued Date-Time: 07/09/2019 13:14 Notice Type: Patient Choice Letter Notice Delivered To: Patient Relationship to Patient: Senior Ios Developer Name: Delivery Method: - Mariella Days: Prior Verbal Notification: Recipient Understood Notice: Yes Recipient Signature: Yes Med Rec Note Co-signed by Attending: Coverage Notice Comment: 1. [facility] IN Rehab 2. [facility] IN Rehab Last DP export: 07/12/19 4:25 p Patient Name: MARTINA LEAL Page [phone] at 0919 All edits/amendments must be made on the electronic document DICTATION DATE: 07/15/19918 HOIST CYLINDER LOADER: FAISAL 07/15/19918 RPT#: [id number] DC DATE:07/12/19 STATUS: DIS IN [facility] [address] [place] [address] END OF REPORT
== END 2019-07-12 16:22 | DRG 470 ==
LOC: D.ER 21:31 → D.M3 22:16 → D.MS 22:16 → D.M3 07-08 16:18
PROVIDERS: Family Medicine; Orthopaedic Surgery; ADMIT Internal Medicine Nephrology; ATTEND Internal Medicine Nephrology
PROC: 0SRB0JZ Replacement of Left Hip Joint with Synthetic Substitute, Open Approach (ICD-10-PCS; principal; 2019-07-08 15:00)
DX: S72.002A Fracture of unspecified part of neck of left femur, initial encounter for closed fracture (principal); N39.0 Urinary tract infection, site not specified; M62.82 Rhabdomyolysis; W18.30XA Fall on same level, unspecified, initial encounter; Z91.81 History of falling; I10 Essential (primary) hypertension; D75.89 Other specified diseases of blood and blood-forming organs

== ENCOUNTER 2019-07-12 15:45 | Inpatient (IN) | payer MEDICARE, MEDICAID ==
[~2019-07-12] VITALS: Ht 152.4 cm; Wt 61.2 kg
[~2019-07-12 15:45] MED LIST changes: +ELIQUIS2.5 MG PO; +HYDROCODON-ACE1 EA10 PO; +Levaquin PO
[2019-07-12 18:04] VITALS: BP 126/70; BMI 26.4
--- NOTE | 2019-07-12 19:30 | NUR ---
PT IS RESTING IN A WC IN HER ROOM. ALERT AND ORIENTED X 3. DENIES ACUTE PAIN OR DISCOMFORT AT THIS TIME. NO NEEDS VOICED. SR'S ARE UP X 2 IN BED. CALL LIGHT AND BEDSIDE TABLE ARE WITHIN EASY REACH.
--- NOTE | 2019-07-12 21:38 | NUR ---
PT IS RESTING QUIETLY IN BED WITH EYES CLOSED. RESPS ARE EVEN AND UNLABORED. NO ACUTE DISTRESS NOTED.
--- NOTE | 2019-07-13 00:01 | NUR ---
RESTING IN BED WITH EYES CLOSED.
[2019-07-13 00:36] VITALS: BP 149/70
--- NOTE | 2019-07-13 03:00 | NUR ---
PT ASSISTED TO THE BATHROOM WITH MOD ASSIST. PT MOVING WELL, BUT VERY SLOWLY. VOIDED WITHOUT DIFFICULTY. NO NEEDS VOICED.
--- NOTE | 2019-07-13 06:07 | NUR ---
I have reviewed this patient and I concur with the Shift Assessment completed by the Licensed Practical Nurse today this shift.
[2019-07-13 07:15] LABS: ANION GAP 11.5 mmol/L (8-16); CALCIUM 8.4 mg/dL (8.5-10.1); CARBON DIOXIDE 28.1 mmol/L (21.0-32.0); CREATININE - SERUM 0.9 mg/dL (0.6-1.3); POTASSIUM - SERUM 3.6 mmol/L (3.5-5.1)
[2019-07-13 08:32] LABS: BASOPHILS 0.4 % (0-2); EOSINOPHILS 5.2 % (0-7); HEMATOCRIT 31.5 % (36.0-48.0); HEMOGLOBIN 10.2 g/dL (12-16); IMMATURE GRANULOCYTES 0.6 % (0-5); MCH 33.4 pg (26.0-34.0); MCHC 32.4 g/dL (31.0-37.0); MCV 103.3 fL (80.0-100.0); MEAN PLATELET VOLUME 9.1 fL (7.4-10.4); MONOCYTES 4.3 % (2-11); NEUTROPHILS 64.5 % (40-80); PLATELET COUNT 210 10x3/uL (130-400); RBC 3.05 10x6/uL (4.00-5.40); RDW 12.7 % (11.5-14.5); WBC 4.6 10x3/uL (4.8-10.8)
[2019-07-13 12:06] VITALS: Ht 152.4 cm; Wt 61.2 kg
--- NOTE | 2019-07-13 14:13 | NUR ---
SITTING UP IN WC IN ROOM. DENIES INCREASED PAIN. TAKES TYLENOL FOR PAIN. MOVEMENTS ARE SLOWWWW....TRANSFERS SELF WITH MIN ASST. DSG TO LEFT ANTERIOR HIP IN PLACE. NO S/S INFECTION. CALL LIGHT IN REACH
--- NOTE | 2019-07-13 16:22 | NUR ---
SITTING UP IN WC IN ROOM TALKING WITH SEVERAL VISITORS. STATES SHE LIKES TO SIT IN WC INSTEAD OF BED DURING THE DAY. SHE DENIES INCREASED PAIN. CALL LIGHT IN REACH
--- NOTE | 2019-07-13 19:40 | NUR ---
PT IS IN THE BATHROOM IN HER WC, BRUSHING HER TEETH AT THE SINK. NO NEEDS VOICED.
[2019-07-13 21:00] VITALS: BP 104/63
--- NOTE | 2019-07-13 22:47 | NUR ---
PT RESTING QUIETLY IN BED WITH EYES CLOSED. NO ACUTE DISTRESS NOTED.
--- NOTE | 2019-07-14 01:36 | NUR ---
I have reviewed this patient and I concur with the Shift Assessment completed by the Licensed Practical Nurse today this shift.
--- NOTE | 2019-07-14 04:42 | NUR ---
PT IS RESTING QUIETLY IN BED WITH EYES CLOSED. RESPS ARE EVEN AND UNLABORED. NO ACUTE DISTRESS NOTED.
[2019-07-14 08:00] VITALS: BP 94/66
--- NOTE | 2019-07-14 19:30 | NUR ---
PT IS RESTING IN HER WC IN HER ROOM. ALERT AND ORIENTED X 3. DENIES ACUTE DISCOMFORT AT THIS TIME. PT ASSISTED TO THE BATHROOM WITH MIN ASSIST. VOIDED WITHOUT DIFFICULTY. PT THEN ASSISTED INTO BED PER HER REQUEST. DRESSING TO LEFT HIP IS CDI. NO DRAINAGE NOTED. SR'S ARE UP X 3 IN BED. CALL LIGHT AND BEDSIDE TABLE ARE WITHIN EASY REACH.
[2019-07-14 20:00] VITALS: BP 132/77
--- NOTE | 2019-07-14 21:49 | NUR ---
PT IS RESTING IN BED WITH EYES CLOSED. NO ACUTE DISTRESS NOTED.
--- NOTE | 2019-07-15 00:01 | NUR ---
PT RESTING IN BED WITH EYES CLOSED. NO DISTRESS NOTED.
--- NOTE | 2019-07-15 03:26 | NUR ---
I have reviewed this patient and I concur with the Shift Assessment completed by the Licensed Practical Nurse today this shift.
--- NOTE | 2019-07-15 06:12 | NUR ---
PT ASSISTED TO THE BATHROOM WITH MOD ASSIST. VOIDED WITHOUT DIFFICULTY. SMALL BM NOTED. PT OPTED TO STAY UP IN WHEELCHAIR AFTERWARDS.
[2019-07-15 06:58] LABS: HEMATOCRIT 30.2 % (36.0-48.0); HEMOGLOBIN 9.9 g/dL (12-16); MCH 33.7 pg (26.0-34.0); MCHC 32.8 g/dL (31.0-37.0); MCV 102.7 fL (80.0-100.0); MEAN PLATELET VOLUME 9.2 fL (7.4-10.4); PLATELET COUNT 231 10x3/uL (130-400); RBC 2.94 10x6/uL (4.00-5.40); RDW 12.8 % (11.5-14.5); WBC 5.1 10x3/uL (4.8-10.8)
[2019-07-15 07:27] LABS: ANION GAP 12.1 mmol/L (8-16); CALCIUM 8.7 mg/dL (8.5-10.1); CARBON DIOXIDE 28.9 mmol/L (21.0-32.0)
[2019-07-15 07:31] LABS: CREATININE - SERUM 1.3 mg/dL (0.6-1.3)
[2019-07-15 09:48] VITALS: BP 105/56
[2019-07-15 10:40] LABS: EOSINOPHILS 4 % (0-7); LYMPHOCYTES 24 % (15-50); MONOCYTES 6 % (2-11); NEUTROPHILS 65 % (40-80); PLATELET ESTIMATE NORMAL
[2019-07-15 10:41] LABS: ANISOCYTOSIS OCC; POLYCHROMASIA OCC
--- NOTE | 2019-07-15 15:35 | NUR ---
PATIENT ADMITTED TO REHAB FROM ACUTE FLOOR. PATIENT PCP IS DR. AREVALO. DME AT HOME IS A CANE. DISCHARGE PLANS ARE FOR PATIENT TO RETURN HOME. WILL CONTINUE TO FOLLOW WITH PATIENT.
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
--- NOTE | 2019-07-15 19:30 | NUR ---
PT IS RESTING IN BED WITH EYES OPEN. ALERT AND ORIENTED X 3. DENIES ACUTE PAIN OR DISCOMFORT AT THIS TIME. NO NEEDS VOICED. DRESSING TO LEFT HIP IS CDI. SR'S ARE UP X 2 IN BED. CALL LIGHT AND BEDSIDE TABLE ARE WITHIN EASY REACH.
[2019-07-15 20:41] VITALS: BP 107/65
--- NOTE | 2019-07-15 22:26 | NUR ---
PT IS RESTING QUIETLY IN BED WITH EYES CLOSED. NO DISTRESS NOTED.
--- NOTE | 2019-07-16 00:45 | NUR ---
PT IS RESTING IN BED WITH EYES OPEN. NO COMPLAINT VOICED.
--- NOTE | 2019-07-16 01:16 | NUR ---
I have reviewed this patient and I concur with the Shift Assessment completed by the Licensed Practical Nurse today this shift.
--- NOTE | 2019-07-16 04:09 | NUR ---
PT RESTING IN BED WITH EYES CLOSED.
--- NOTE | 2019-07-16 08:00 | NUR ---
SHIFT ASSMT COMPLETED.UP OOB IN WC.CL IN REACH.BREAKFAST GIVEN.
[2019-07-16 15:02] VITALS: BP 124/64
--- NOTE | 2019-07-16 19:52 | NUR ---
AWAKE AND ALERT. IN WHEELCHAIR IN ROOM. RESPIRAITONS UNLABORED. NO NEEDS VOICED. NO DISTRESS NOTED.
[2019-07-17 00:07] VITALS: BP 115/67
--- NOTE | 2019-07-17 02:31 | NUR ---
SLEEPING IN BED WITH RESPIRATIONS UNLABORED. NO DISTRESS NOTED. CALL LIGHT IN REACH.
--- NOTE | 2019-07-17 04:55 | NUR ---
QUIET HOURS. NO ACUTE CHANGES IN CONDITION THIS SHIFT. ASSISTED TO BATHROOM AND BACK TO BED. DRESSING INTACT TO LEFT HIP INCISION SITE. RESPIRATIONS UNLABORED. CALL LIGHT IN REACH.
--- NOTE | 2019-07-17 08:00 | NUR ---
SHIFT ASSMT COMPLETED.UP OOB SITTING IN WC.CL IN REACH.BREAKFAST TRAY GIVEN.
[2019-07-17 08:58] LABS: BASOPHILS 0.6 % (0-2); EOSINOPHILS 5.5 % (0-7); HEMOGLOBIN 10.6 g/dL (12-16); IMMATURE GRANULOCYTES 0.8 % (0-5); LYMPHOCYTES 25.9 % (15-50); MCH 33.1 pg (26.0-34.0); MCHC 32.1 g/dL (31.0-37.0); MCV 103.1 fL (80.0-100.0); NEUTROPHILS 64.2 % (40-80); RDW 12.8 % (11.5-14.5); WBC 5.1 10x3/uL (4.8-10.8)
[2019-07-17 09:06] LABS: ANION GAP 11.1 mmol/L (8-16); CALCIUM 9.2 mg/dL (8.5-10.1); CARBON DIOXIDE 29.4 mmol/L (21.0-32.0); CREATININE - SERUM 1.2 mg/dL (0.6-1.3); POTASSIUM - SERUM 3.5 mmol/L (3.5-5.1)
[2019-07-17 09:24] LABS: PLATELET COUNT 287 10x3/uL (130-400)
[2019-07-17 09:36] VITALS: BP 121/60
--- NOTE | 2019-07-17 15:27 | NUR ---
Nutrition Follow-up: Diet: Vegan PO intake: 50-75%; she reports that her appetite is good as long as she gets food that she likes to eat. She gave several food preferences. Last BM: 07/15/19. WT: 135# (07/13/19) Meds reviewed. Labs noted: Glu 117(H), GFR 47(L). Recommend continue current diet. Will update diet order with new food preferences. Encouraged PO intake. RD following.
--- NOTE | 2019-07-17 15:37 | NUR ---
CARE TEAM MEETING: PATIENT IS PROGRESSING IN THERAPY. TENATIVE DISCHARGE DATE HOME IS 07/25/19. WILL CONTINUE TO FOLLOW WITH PATIENT AND WILL BE RA AT NEXT MEETING.
--- NOTE | 2019-07-17 19:27 | NUR ---
PT SITTING UP IN WHEELCHAIR. CL IN REACH. DENIES NEEDS OR PAIN AT THIS TIME. BED IN LOW SIDE RAILS X2. LUNGS CLEAR. BOWEL ACTIVE X4. RESP EVEN AND UNLABORED. WILL CONTINUE TO MONITOR.
[2019-07-17 21:20] VITALS: BP 125/62
[2019-07-18 09:21] VITALS: BP 128/68
--- NOTE | 2019-07-18 18:09 | NUR ---
SITTING UP WC IN ROOM FINISHING SUPPER. HAS BEEN IN WC ALL DAY. DENIES INCREASED PAIN. CALL LIGHT IN REACH. DOES MOST ADL'S BY HERSELF.
--- NOTE | 2019-07-18 19:25 | NUR ---
PT SITTING UP IN BED. CL IN REACH. DENIES NEEDS OR PAIN AT THIS TIME. BED IN LOW SIDE RAILS X2. A/O X4. LUNGS CLEAR. BOWEL ACTIVE X4. RESP EVEN AND UNLABORED. BED ALARM WAIVER. WILL CONTINUE TO MONITOR.
[2019-07-18 22:57] VITALS: BP 112/66
--- NOTE | 2019-07-19 04:19 | NUR ---
I have reviewed this patient and I concur with the Shift Assessment completed by the Licensed Practical Nurse today this shift.
[2019-07-19 09:52] VITALS: BP 108/54
--- NOTE | 2019-07-19 14:23 | NUR ---
SITTING IN WC IN THERAPY ROOM. WHEELS SELF AROUND IN WC. DOES MOST OF ADL'S BY SELF. HAS BED WAIVER SIGNED AND ON CHART. DENIES INCREASED PAIN.
--- NOTE | 2019-07-19 19:15 | NUR ---
PT SITTING UP IN WHEELCHAIR. CL IN REACH. DENIES NEEDS OR PAIN AT THIS TIME. A/O X4. LUNGS CLEAR. BOWEL ACTIVE X4. RESP EVEN AND UNLABORED. WILL CONTINUE TO MONITOR.
[2019-07-20 02:18] VITALS: BP 96/55
--- NOTE | 2019-07-20 02:19 | NUR ---
I have reviewed this patient and I concur with the Shift Assessment completed by the Licensed Practical Nurse today this shift.
[2019-07-20 08:00] VITALS: BP 150/52
--- NOTE | 2019-07-20 08:00 | NUR ---
SHIFT ASSMT COMPLETED.BREAKFAST GIVEN.CL IN REACH.
--- NOTE | 2019-07-20 12:00 | NUR ---
SITTING UP IN WC EATING LUNCH.
--- NOTE | 2019-07-20 16:00 | NUR ---
SITTING UP IN WC.HAS REMAINED UP ARMANDO.SITTING AT BDSIDE.
--- NOTE | 2019-07-20 18:40 | NUR ---
PT IN BED, PLEASANT, NO NEEDS VERBALIZED OR NOTED, ALARM WAIVER SIGNED AND IN PLACE
[2019-07-20 20:13] VITALS: BP 113/60
[2019-07-21 08:00] VITALS: BP 121/70
--- NOTE | 2019-07-21 08:00 | NUR ---
SHIFT ASSMT COMPLETED.CL IN REACH.BREAKFAST GIVEN.UP IN WC.
--- NOTE | 2019-07-21 12:00 | NUR ---
SITTING UP EATING LUNCH.
[2019-07-21 19:41] VITALS: BP 123/61
--- NOTE | 2019-07-21 23:55 | NUR ---
PT IN BED, GREETED PT, PLACED NAME ON BOARD, NO NEEDS VERBALIZED
[2019-07-22 08:00] VITALS: BP 105/55
--- NOTE | 2019-07-22 09:48 | NUR ---
SITTING UP IN WC IN ROOM. HAS BEEN UP ALL MORNING ROLLING AROUND IN ROOM, TAKING HERSELF TO BATHROOM AND BACK. DENIES INCREASED PAIN.
--- NOTE | 2019-07-22 10:44 | NUR ---
CLINIAL UPDATES FAXED TO [facility] RE.: AUTH. # [id number] WITH A TENATIVE DISCHARGE DATE OF 07/24/2019. WITH CONFORMATION RECUIEVED. WILL CONTINUE TO FOLLOW WITH PATIENT.
--- NOTE | 2019-07-22 18:01 | NUR ---
SITTING UP IN WC IN ROOM FINISHING SUPPER. DENIES INCREASED PAIN. CALL LIGHT IN REACH
--- NOTE | 2019-07-22 20:01 | NUR ---
PT UP IN BATHROOM, TRANSFERED SELF EASILY, NO NEEDS VERBALIZED,FALL PRECAUTIONS IN PLACE, INCISIONS ROBBIN, BRUISING
--- NOTE | 2019-07-23 03:30 | NUR ---
PT ASLEEP,BED IN LOW POSITION,NO NEEDS NOTED,FLUIDS AND CALL LIGHT IN REACH
[2019-07-23 06:56] VITALS: BP 123/70
[2019-07-23 08:03] VITALS: BP 104/67
--- NOTE | 2019-07-23 12:33 | NUR ---
SITTING UP IN WC IN ROOM EATING LUNCH AND TALKING WITH VISITOR. DENIES NEEDS OR INCREASED PAIN.
--- NOTE | 2019-07-23 15:06 | NUR ---
Nutrition Follow-up: Diet: Vegan, NO SUGAR PO intake: ~98% average x last 6 meals; she reports and "okay" appetite and denies any needs from dietary at this time. Last BM: 07/21/19 x 3. WT: 135# (07/13/19), no new WT Meds reviewed, no new labs Recommend continue current diet. Will continue to honor food preferences. RD following.
--- NOTE | 2019-07-23 17:48 | NUR ---
SITTING UP IN WC IN ROOM EATING SUPPER. DENIES NEEDS
--- NOTE | 2019-07-23 19:25 | NUR ---
PT SITTING UP IN WHEELCHAIR. DENIES NEEDS AT THIS TIME. BED IN LOW SIDE RAILS X2. CL IN REACH. LUNGS CLEAR. BOWEL ACTIVE X4. A/O X4. RESP EVEN AND UNLABORED. WILL CONTINUE TO MONITOR.
[2019-07-23 20:09] VITALS: BP 114/70
--- NOTE | 2019-07-24 01:15 | NUR ---
PT LYING IN BED EYES CLOSED RESTING COMFORTABLY. RR EVEN AND UNLABORED. CL IN REACH
--- NOTE | 2019-07-24 05:53 | NUR ---
I have reviewed this patient and I concur with the Shift Assessment completed by the Licensed Practical Nurse today this shift.
[2019-07-24 07:22] LABS: BASOPHILS 0.5 % (0-2); EOSINOPHILS 2.9 % (0-7); HEMATOCRIT 31.6 % (36.0-48.0); HEMOGLOBIN 10.3 g/dL (12-16); IMMATURE GRANULOCYTES 0.2 % (0-5); LYMPHOCYTES 20.4 % (15-50); MCH 33.6 pg (26.0-34.0); MCHC 32.6 g/dL (31.0-37.0); MCV 102.9 fL (80.0-100.0); MEAN PLATELET VOLUME 8.5 fL (7.4-10.4); MONOCYTES 6.9 % (2-11); NEUTROPHILS 69.1 % (40-80); PLATELET COUNT 335 10x3/uL (130-400); RBC 3.07 10x6/uL (4.00-5.40); RDW 13.1 % (11.5-14.5); WBC 5.8 10x3/uL (4.8-10.8)
[2019-07-24 07:33] LABS: ANION GAP 10.5 mmol/L (8-16); CALCIUM 9.6 mg/dL (8.5-10.1); CARBON DIOXIDE 29.2 mmol/L (21.0-32.0); CREATININE - SERUM 1.1 mg/dL (0.6-1.3); POTASSIUM - SERUM 3.7 mmol/L (3.5-5.1)
--- NOTE | 2019-07-24 08:00 | NUR ---
PLAN TO DC HOME TODAY.BREAKFAST GIVEN.CL IN REACH.ASSM COMPLETED.
[2019-07-24] MEDS ORDERED: HYDROCODON-ACE1 EA10 PO (08:58)
--- NOTE | 2019-07-24 09:36 | NUR ---
PATIENT DISCHARGING HOME TODAY WITH FAMILY. [facility] HAS DELIVERED A ROLLING WALKER TO PATIENT. DR. AREVALO/SYLVIA HERNANDEZ 07/29/2019 @ 2:15, DR. ULRICH 07/31/2019 @ 9:20. PATIENT CHOICE FORM FOR HOME HEALTH AND [facility] FORMS SIGNED AND EXPLAINED ONE GIVEN TO PATIENT AND FILED IN CHART. NO COMPARE DATA REVIEWED PATIENT IS ESTABLISHED WITH [facility]. DISCHARGE INSTRUCTIONS FAXED TO PCP, HOME HEALTH AND REVIEWED WITH PATIENT.
--- NOTE | 2019-07-24 11:48 | NUR ---
FAXED DISCHARGE INSTRUCTIONS TO [facility] AT , REGARDING AUTH. # [id number] WITH CONFORMATION RECEIVED
--- NOTE | 2019-07-24 12:00 | NUR ---
REVIEWED MEDS AND F/U APPTS.MEDS CALLED INTO [facility] TO SET UP THERAPIES.DISCHARGED TO HOME WITH ROLLING WALKER.
--- NOTE | 2019-07-24 14:54 | NUR ---
PLAN TO DC HOME TODAY WITH FRIEND AND RW.PACKING BELONGINGS NOW.EXCITED.BREAKFAST GIVEN.CL IN REACH.
== END 2019-07-24 12:00 | disposition home health service (06) | DRG 812 ==
LOC: D.REHAB 15:45
PROVIDERS: ADMIT Emergency Medicine; ATTEND Emergency Medicine
DX: D62 Acute posthemorrhagic anemia (principal); M62.82 Rhabdomyolysis; N39.0 Urinary tract infection, site not specified; S72.001D Fracture of unspecified part of neck of right femur, subsequent encounter for closed fracture with routine healing; Z96.641 Presence of right artificial hip joint; R53.1 Weakness; D75.89 Other specified diseases of blood and blood-forming organs; I10 Essential (primary) hypertension; R52 Pain, unspecified

== ENCOUNTER 2019-12-02 14:21 | Day surgery (SDC) | payer OTHER, MEDICAID ==
--- NOTE | 2019-11-28 09:37 | NUR ---
BP RA- 107/58, HR- 73 RR- 16 POX- 95%
[2019-11-28 09:48] LABS: HEMOGLOBIN 11.8 g/dL (12-16); MCH 32.5 pg (26.0-34.0); MCHC 32.8 g/dL (31.0-37.0); MCV 99.2 fL (80.0-100.0); MEAN PLATELET VOLUME 8.8 fL (7.4-10.4); RBC 3.63 10x6/uL (4.00-5.40); RDW 13.6 % (11.5-14.5); WBC 3.9 10x3/uL (4.8-10.8)
[~2019-12-02] VITALS: Ht 152.4 cm; Wt 63.5 kg
--- NOTE | ~2019-12-02 | OP ---
PATIENT NAME: MARTINA LEAL MEDICAL RECORD: [id number] :47 LOCATION:D.OPS ADMISSION DATE: SURGEON: SAI DANIELSON MD DATE OF OPERATION: 12/02/2019 PREOPERATIVE DIAGNOSES: Displaced distal radius fracture with acute carpal tunnel syndrome. POSTOPERATIVE DIAGNOSES: Displaced distal radius fracture with acute carpal tunnel syndrome. PROCEDURES: 1. Open reduction and internal fixation of displaced distal radius fracture. 2. Carpal tunnel release. SURGEON: Sai Danielson MD ANESTHESIA: General. INTRAOPERATIVE COMPLICATIONS: None. SUMMARY OF PATHOLOGIC FINDINGS: While the patient had a fairly significant fracture, it reduced back nicely to an anatomic position with internal fixation using Raz's volar approach. OPERATIVE SUMMARY IN DETAIL: After obtaining the appropriate preoperative orthopedic surgery consent as well as anesthetic consultation, evaluation and clearance, the patient was brought to the operating room and placed on the operating table in a supine position. After adequate general laryngeal mask airway was administered, tourniquet was placed about the proximal aspect of the left upper extremity. Left upper extremity was then prepped and draped in routine sterile fashion. The arm was elevated and exsanguinated, tourniquet was inflated to 350 mmHg. At this time, the appropriate timeout was taken and agreed upon body given the patient's unique identifiers. Traction countertraction maneuver used to reduce this and it fell into a very nice position on AP and lateral planes. However, given the degree of its dorsal comminution, a decision had already been made to proceed with internal fixation. Volar incision was made from the palmar aspect up and around to the radial artery again in keeping with Raz's volar approach. An incision was taken down to the FCR and used as visualization. This dissection was then carried deeper. The carpal canal was identified and the transverse carpal ligament was incised in its entirety using a Byron light knife under direct visualization. Next, the flexor mechanisms and median nerve were all reflected and protected for approach to the fracture. Fracture was identified and with the use of fluoroscopy, the plate was put into the most appropriate position for adequate fracture healing and baptism of length, radial angle of inclination as well as volar tilt. The plate was then applied with sequential locking and nonlocking screws for ultimate bone stability. Having completed this, final radiographs were sent from the fluoroscopy machine, which was used during the case for radiologist review. Having completed this, the wound was irrigated and closed with 2-0 Vicryl followed by 4-0 Prolene. Sterile dressings were applied. A volar splint was applied. Tourniquet was deflated. The patient was awakened and taken to the recovery room in stable condition. All final needle and sponge counts were correct. OPERATIVE REPORT [id number] MELMARTINA GARCIA TRANSINT:[id number] Voice Confirmation ID: [id number] DOCUMENT ID: [id number] JAGJIT DUMONT, SAI CASTANEDA CC: [id number] DICTATION DATE: 12/26/19 1301 SHUTTLE HAND: 12/26/19 1604 [facility] [place] 12/02/19 [facility] [address] [place] [address]
[~2019-12-02 14:21] MED LIST changes: +ADVIL200 MG PO
[2019-12-02 14:45] VITALS: Ht 152.4 cm; Wt 63.5 kg
[2019-12-02] MEDS ORDERED: HYDROCODON-ACE1 EA10 PO (20:44)
[2019-12-02 21:30] VITALS: BP 138/76
--- NOTE | 2019-12-02 21:35 | NUR ---
PT ARRIVED ON UNIT VIA STRETCHER FROM SURGERY. TRANSFERRED TO BED AND ORIENTED TO ROOM AND CALL LIGHT. CONNECTED IVF TO PUMP. PT REPORTS NO PAIN AT THIS TIME. VITALS STABLE AND PT IS AFEBRILE.
--- NOTE | 2019-12-02 22:20 | NUR ---
CALLED FAMILY MEMBER TO COME TO COMMERCIAL COUNSEL PT.
--- NOTE | 2019-12-02 22:32 | NUR ---
DISCHARGE INSTRUCTIONS GIVEN. GAVE PRESCRIPTION FOR PAIN MEDICATION. ESCORTED PT TO ER EXIT VIA WHEELCHAIR TO AWAITING FAMILY MEMBER IN VEHICLE. ASSISTED TO GET PT IN CAR. TOLD TO CALL WITH QUESTIONS OR RETURN TO ER IF PROBLEM ARISES.
--- NOTE | 2019-12-02 22:32 | NUR ---
REMOVED IV TO RIGHT HAND WITH CATHETER TIP INTACT. PLACED PRESSURE DRESSING.
== END 2019-12-02 22:33 | disposition home or self-care (01) ==
LOC: D.OPS 14:21 → D.MS 21:07 → D.OPS 22:33
PROVIDERS: Anesthesiology; ATTEND Orthopaedic Surgery
DX: S52.502A Unspecified fracture of the lower end of left radius, initial encounter for closed fracture (principal); X58.XXXA Exposure to other specified factors, initial encounter; G56.02 Carpal tunnel syndrome, left upper limb